=== PATIENT | male | born 1975 | race Caucasian/White ===

== ENCOUNTER 2020-08-12 15:12 | Outpatient (CLI) | payer BC, SELFPAY ==
--- NOTE | 2020-08-12 15:30 | XR_ITS ---
WS: [id number] RIGHT HUMERUS: 2 VIEW(S) TECHNIQUE: AP and lateral. HISTORY: R22.31 - Localized swelling, mass and lump, right upper limb COMPARISON: None available. No acute fracture or dislocation. Mild prominence of soft tissues over the anterior mid to distal forearm. No foreign bodies and visualized upper thorax is unremarkable. XR/[place] [id number] IMPRESSION: Mild soft tissue prominence over the anterior mid to distal forearm. Otherwise negative. May be a hematoma or ruptured biceps tendon. For further evaluation c onsider MRI follow-up.
== END 2020-08-12 15:13 | disposition home or self-care (01) ==
PROVIDERS: PCP Nurse Practitioner Family; Visit Provider Nurse Practitioner Family
DX: R22.31 Localized swelling, mass and lump, right upper limb (principal)
CPT/HCPCS: 73060

== ENCOUNTER 2020-08-21 14:29 | Outpatient (CLI) | payer BC, SELFPAY ==
--- NOTE | 2020-08-21 14:48 | CT_ITS ---
WS: [id number] Contrast-enhanced CT right elbow TECHNIQUE: Contrast-enhanced CT right elbow with coronal and sagittal reformatted images. CLINICAL INFORMATION: R22.31 - Localized swelling, mass and lump, right upper limb COMPARISON: August 12, 2020 DLP: [id number] scans at [facility] use at least one of these dose optimization techniques: automat ed exposure control; mA and/or kV adjustment per patient size (includes targeted exams where dose is matched to clinical indication); or iterative reconstruction. FINDINGS: Palpable marker overlying the area of concern. In the area of concern, at the level of the midhumerus, in the anterior upper arm soft tissues there is a small area of induration extending to t he skin corresponding to the area of recent trauma and laceration. There is a tiny fluid collection m easuring 2.1 x 6.6 x 11.1 mm. This likely represents a tiny amount of phlegmon or abscess. This is no t drainable. Small amount of surrounding soft tissue induration and peripheral enhancement. Normal anatomic alignment. No acute fractures. Normal humeral shaft. Visualized elbow is normal in ap pearance. Distal humerus is normal in appearance. Normal epicondyles. Normal radial head and neck. No rmal olecranon. Normal coronoid process. CT/CT elbow [place] con [id number] IMPRESSION: 1. In the area of concern, indicated by the palpable marker, there is a tiny p eripheral enhancing fluid collection measuring 2.1 x 6.6 x 11.1 mm with a small amount of surrounding induration. This likely represents a small amount of phl egmon or abscess from recent penetrating trauma. This is not drainable. 2. No other significant abnormalities.
[2020-08-21] MEDS: iohexol 300 mg/mL 100 mL Btl IV (15:12)
== END 2020-08-21 14:30 | disposition home or self-care (01) ==
LOC: RADWPI 14:31
PROVIDERS: PCP Nurse Practitioner Family; Visit Provider Nurse Practitioner Family
DX: R22.31 Localized swelling, mass and lump, right upper limb (principal)
CPT/HCPCS: 73201; Q9967

== ENCOUNTER → 2021-03-06 14:14 | Outpatient (BNVA) | payer BC, SELFPAY | PROVIDERS: PCP Nurse Practitioner Family; Visit Provider Nurse Practitioner Family | DX: Z20.822 Contact with and (suspected) exposure to COVID-19 (principal); R50.9 Fever, unspecified; R30.9 Painful micturition, unspecified | CPT/HCPCS: 81000; 87635 ==

== ENCOUNTER → 2021-03-28 18:54 | Outpatient (BNVA) | payer BC, SELFPAY | PROVIDERS: PCP Nurse Practitioner Family; Visit Provider Nurse Practitioner | DX: M54.9 Dorsalgia, unspecified (principal) | CPT/HCPCS: 81000 ==

== ENCOUNTER → 2021-04-01 09:54 | Outpatient (BNVA) | payer BC, SELFPAY | PROVIDERS: PCP Nurse Practitioner Family; Visit Provider Nurse Practitioner Family | DX: M10.9 Gout, unspecified (principal); N20.0 Calculus of kidney; E78.5 Hyperlipidemia, unspecified | CPT/HCPCS: 80053; 80061; 82365; 84550; 88300 ==

== ENCOUNTER 2021-04-29 14:28 | Outpatient (CLI) | payer BC, SELFPAY ==
--- NOTE | 2021-04-29 15:00 | US_ITS ---
WS: [id number] ULTRASOUND BLADDER CLINICAL INFORMATION: N21.0 - Calculus in bladder COMPARISON: None. FINDINGS: Urinary bladder: The urinary bladder is morphologically normal. No free fluid is seen in the pelvis. Bladder volume Prevoid bladder: 5.4 cm x 6.2 cm x 9.0 cm; estimated volume 162 ml. Postvoid bladder: 2.1 cm x 3.3 cm x 2.4 cm; estimated volume 9.1 ml. US/US bladder [id number] IMPRESSION: 1. Prevoid bladder volume 162 cc. 2. Postvoid bladder volume 9.1 cc. 3. Normal post void residual.
== END 2021-04-29 14:29 | disposition home or self-care (01) ==
PROVIDERS: PCP Nurse Practitioner Family; Visit Provider Nurse Practitioner Family
DX: N21.0 Calculus in bladder (principal)
CPT/HCPCS: 76857

== ENCOUNTER → 2021-08-07 09:57 | Outpatient (BNVA) | payer BC, SELFPAY | PROVIDERS: PCP Nurse Practitioner Family; Visit Provider Nurse Practitioner Family | DX: E78.5 Hyperlipidemia, unspecified (principal) | CPT/HCPCS: 80061 ==

== ENCOUNTER → 2022-08-25 14:42 | Outpatient (BNVA) | payer BC, SELFPAY | PROVIDERS: PCP Nurse Practitioner Family; Visit Provider Nurse Practitioner Family | DX: G47.30 Sleep apnea, unspecified (principal); E78.5 Hyperlipidemia, unspecified; M10.9 Gout, unspecified | CPT/HCPCS: 80053; 80061; 83721 ==

== ENCOUNTER 2022-10-21 15:30 | Outpatient (CLI) | payer BC, SELFPAY | END 2022-10-21 15:31 | disposition home or self-care (01) | LOC: SLEEP 10-22 17:00 | PROVIDERS: PCP Nurse Practitioner Family; Visit Provider Nurse Practitioner Family | DX: G47.33 Obstructive sleep apnea (adult) (pediatric) (principal); G47.36 Sleep related hypoventilation in conditions classified elsewhere | CPT/HCPCS: G0399 ==

== ENCOUNTER → 2024-02-07 13:43 | Outpatient (BNVA) | payer BC, SELFPAY | PROVIDERS: PCP Nurse Practitioner Family; Visit Provider Nurse Practitioner Family | DX: R50.9 Fever, unspecified (principal) | CPT/HCPCS: 87400; 87426 ==